=== PATIENT | male | born 1995 ===

== ENCOUNTER 2017-09-10 11:41 | Emergency (ER) | payer OTHER ==
[~2017-09-10] VITALS: Ht 185.4 cm; Wt 93.2 kg
[2017-09-10 11:44] VITALS: BP 146/98
[2017-09-10] MEDS ORDERED: OXYcodone/APAP 5/325MG TABLET PO ONE (12:00)
[2017-09-10] MEDS ORDERED: ONDANSETRON ODT 4 MG PO ONE (12:00)
[2017-09-10] MEDS ORDERED: OXYcodone/APAP 5/325MG TABLET ONE (12:02)
[2017-09-10] MEDS ORDERED: ONDANSETRON ODT 4 MG ONE (12:02)
[2017-09-10] MEDS ORDERED: CEFAZOLIN 1,000 MG ONE (12:49)
[2017-09-10] MEDS ORDERED: CEFAZOLIN 1,000 MG IM ONE (13:00)
== END 2017-09-10 13:45 | disposition home or self-care (01) ==
LOC: ED 13:39
DX: S92.511A Displaced fracture of proximal phalanx of right lesser toe(s), initial encounter for closed fracture (principal); W20.8XXA Other cause of strike by thrown, projected or falling object, initial encounter; Y93.89 Activity, other specified; Y92.69 Other specified industrial and construction area as the place of occurrence of the external cause; Y99.0 Civilian activity done for income or pay
CPT/HCPCS: 73630; 96372; 99284; J0690; Q0162